=== PATIENT | female | born 1980 | race African-American/Black ===

== ENCOUNTER → 2017-02-17 | Outpatient (REF) | payer OTHER ==
[~2017-02-17] MED LIST: AMLO10TA2 PO; IBUP400T OR; PAIN325T OR; VICO5TAB OR
== END ==
LOC: M LAB REF 15:09
PROVIDERS: ATTEND Physician Assistant
DX: N76.0 Acute vaginitis (principal)

== ENCOUNTER 2017-03-21 09:08 | Day surgery (SDC) | payer OTHER ==
[~2017-03-21] VITALS: Ht 165.1 cm; Wt 91.2 kg
[~2017-03-21 09:08] MED LIST changes: +KETOROLAC 60 MG/2 ML VIAL (J1885) As Ordered ONE; +LIDOCAINE 2% INJ 100 MG/5 ML SDV (FOR ANES.) As Ordered ONE; +METOCLOPRAMIDE INJ 10MG/2ML VIAL (J2765) As Ordered ONE; +MIDAZOLAM INJ 2 MG/2 ML VIAL (J2250) As Ordered ONE; +ONDANSETRON 4MG/2ML VIAL (J2405) As Ordered ONE; +PROPOFOL 200 MG/20 ML VIAL As Ordered ONE; +ROCURONIUM BROMIDE 50 MG/5 ML VIAL/SYRINGE As Ordered ONE; +fentaNYL 250 MCG/5 ML INJECTION (J3010) As Ordered ONE
[2017-03-21] MEDS ORDERED: LR 1,000 ML IV ONE (09:15)
[2017-03-21 09:43] LABS: MEAN CORPUSCULAR HEMOGLOBIN 22.3 pg (27.0-33.0); MEAN CORPUSCULAR HGB CONC 29.7 g/dl (32.0-36.5); MEAN CORPUSCULAR VOLUME 75.3 fl (80.0-96.0); RED CELL DISTRIBUTION WIDTH 16.7 % (11.5-14.5); WHITE BLOOD COUNT 6.4 10^3/uL (4.0-10.0)
[2017-03-21] MEDS ORDERED: BUPIVACAINE HCL 0.25% 30 ML VIAL As Ordered ONE (10:46)
[2017-03-21] MEDS ORDERED: BUPIVACAINE HCL 0.5% 30 ML VIAL As Ordered ONE (11:12)
[2017-03-21] MEDS ORDERED: ONDANSETRON 4MG/2ML VIAL (J2405) As Ordered ONE (12:24)
[2017-03-21] MEDS: MEPERIDINE INJ 25 MG/ML VIAL (J2175) IV PRN ×2 (12:26→12:43)
[2017-03-21] MEDS ORDERED: METOCLOPRAMIDE INJ 10MG/2ML VIAL (J2765) IV PRN (12:30)
[2017-03-21] MEDS ORDERED: LR 1,000 ML IV SCH (12:30)
[2017-03-21] MEDS ORDERED: ONDANSETRON 4MG/2ML VIAL (J2405) IV PRN ×2 (12:30→12:45)
[2017-03-21] MEDS ORDERED: fentaNYL 100 MCG/2 ML INJECTION (J3010) IV PRN (12:30)
[2017-03-21] MEDS ORDERED: PERCOCET 5MG/325MG TAB PO PRN (12:30)
[2017-03-21] MEDS ORDERED: DOCUSATE SODIUM 100 MG CAP PO PRN (12:45)
[2017-03-21] MEDS ORDERED: NEOSTIGMINE 10 MG/10 ML VIAL (J2710) As Ordered ONE (13:10)
[2017-03-21] MEDS ORDERED: GLYCOPYRROLATE INJ 0.2 MG/ML 2 ML VIAL As Ordered ONE (13:10)
[2017-03-21] MEDS ORDERED: MORPHINE 2 MG/ML 1ML SYRINGE IV PRN (13:30)
[2017-03-21 15:00] VITALS: BP 179/114
[2017-03-21] MEDS ORDERED: IBUPROFEN 800 MG TAB PO PRN (15:00)
--- NOTE | 2017-03-21 15:33 | RO ---
DATE OF PROCEDURE: 03/21/2017 PREPROCEDURE DIAGNOSIS: Satisfied parity. POSTPROCEDURE DIAGNOSIS: Satisfied parity. OPERATIVE PROCEDURE: Laparoscopic bilateral salpingectomy. SURGEON: Noe Mendez MD CONVERTER OPERATOR: Ludmila Shin MD ANESTHESIA: Dr. Clayton, General. IV FLUIDS: 500 mL. URINE OUTPUT: 100 mL ESTIMATED BLOOD LOSS: 5 mL. COMPLICATIONS: None. SENT TO PATHOLOGY FOR ANALYSIS: Bilateral tubes. ANTIBIOTICS GIVEN PRIOR TO INCISION: None. INDICATION FOR SURGERY: The patient is a 36-year-old G3, P3 using condoms for contraception with strong desire for permanent sterilization via bilateral salpingectomy. I extensively counseled on several episodes in regard to risk/benefits/alternatives/indication and elects to proceed. DESCRIPTION OF PROCEDURE: The risks, benefits, alternatives, indications reviewed with the patient and informed consent was obtained. She was taken to the operating room where general anesthesia was obtained without difficulty. She was then placed in a low lithotomy position using gel pad and Caleb stirrups. An exam under anesthesia was performed and noted for approximately 8 to 10 week size uterus with no adnexal masses or fullness. After a time-out was performed, a sterile speculum was placed in the patient's vagina and cervix was visualized. A single-tooth tenaculum was used to grasp the anterior lip of the cervix. A 9 mm Hanks dilator was then placed intrauterine and then taped for assistance with uterine manipulation to the single tooth tenaculum. Also a Haas catheter was placed without incident in a routine fashion and attention was then turned to the abdomen where after gloves were exchanged, a 5 mm infraumbilical incision was made. A 5 mm trocar and sleeve were carefully introduced into the peritoneal cavity under direct visualization without incident. A pneumoperitoneum was established with entry pressure less than 5 mmHg. After this gas was turned up to a maximum pressure of 20 mmHg and a 360 degrees evaluation was performed to include normal entry site as well as normal appearing uterus, bilateral fallopian tubes and ovaries as well as normal appearing intestines and liver edge. Two additional 5 mm trocars, one on the left and one on the right lower aspect of the abdominal wall were placed under direct visualization using 0.25% Marcaine plain , approximately 3 to 4 mL total utilized. After again proper anatomy was visualized the left fallopian tube was grasped at its fimbriated end and the mesosalpinx was clamped, cut and ligated with the Harmonic scalpel. This was completed up to the cornual aspect which then the fallopian tube was then crossed by the Harmonic device, clamped and cauterized without incident. The left fallopian tube was then removed from the right trocar without incident. The exact same procedure was performed on the right fallopian tube without incident and was removed through the left trocar at this point without incident. Re-examination of the pelvis demonstrated excellent hemostasis. The 5 mm trocars were then removed under direct visualization after all gas was turned off and maximum amount of CO2 was removed from the abdomen. After all trocar sites were removed, the trocar incisions were closed with #4-0 Monocryl in a subcuticular fashion and dressed with Dermabond. All vaginal instruments were removed to include the single tooth tenaculum as well as the Hanks dilator. Manual sweep demonstrated no retained foreign objects in the vagina. At the completion of the case, sponge, lap and needle counts correct times three. The patient tolerated the procedure well and was taken to the post anesthesia care unit (PACU) in stable condition. Eugene Mendez OB-GALLERY OR MUSEUM GUIDE DEVIN
== END 2017-03-21 15:35 | disposition home or self-care (01) ==
LOC: M SDC 09:08
PROVIDERS: ATTEND Student in an Organized Health Care Education/Training Program
DX: Z30.2 Encounter for sterilization (principal); I10 Essential (primary) hypertension; L30.9 Dermatitis, unspecified; L40.9 Psoriasis, unspecified; G43.909 Migraine, unspecified, not intractable, without status migrainosus; J45.909 Unspecified asthma, uncomplicated; Z88.8 Allergy status to other drugs, medicaments and biological substances; Z79.899 Other long term (current) drug therapy
CPT/HCPCS: 36415; 58661; 84702; 85027; 86850; 86900; 86901; 88302; 96374; 96375; J1885; J2175; J2250; J2405; J2710; J2765; J3010

== ENCOUNTER 2018-08-07 19:35 | Emergency (ER) | payer OTHER, SELFPAY ==
[~2018-08-07] VITALS: Ht 165.1 cm; Wt 95.5 kg
[~2018-08-07 19:35] MED LIST changes: -AMLO10TA2 PO; +AMLO10TA5 PO; -KETOROLAC 60 MG/2 ML VIAL (J1885) As Ordered ONE; -LIDOCAINE 2% INJ 100 MG/5 ML SDV (FOR ANES.) As Ordered ONE; -METOCLOPRAMIDE INJ 10MG/2ML VIAL (J2765) As Ordered ONE; -MIDAZOLAM INJ 2 MG/2 ML VIAL (J2250) As Ordered ONE; -ONDANSETRON 4MG/2ML VIAL (J2405) As Ordered ONE; -PROPOFOL 200 MG/20 ML VIAL As Ordered ONE; -ROCURONIUM BROMIDE 50 MG/5 ML VIAL/SYRINGE As Ordered ONE; -fentaNYL 250 MCG/5 ML INJECTION (J3010) As Ordered ONE
[2018-08-07] MEDS ORDERED: ZYRTTAB8 PO (19:47)
[2018-08-07] MEDS ORDERED: MECLIZINE 25 MG TABLET PO ONE (21:30)
[2018-08-07 22:29] LABS: BASO % 0.3 % (0.0-1.0); EOS # 0.3 10^3/uL (0.0-0.50); EOS % 3.2 % (0.0-3.0); HEMATOCRIT 32.4 % (36.0-47.0); HEMOGLOBIN 9.3 g/dl (12.0-15.5); LYMPH # 2.7 10^3/uL (1.5-4.5); LYMPH % 34.4 % (24.0-44.0); MEAN CORPUSCULAR HEMOGLOBIN 20.5 pg (27.0-33.0); MEAN CORPUSCULAR HGB CONC 28.7 g/dl (32.0-36.5); MEAN CORPUSCULAR VOLUME 71.5 fl (80.0-96.0); MONO # 0.6 10^3/uL (0.0-0.8); MONO % 7.4 % (0.0-5.0); NEUTROPHILS # 4.3 10^3/uL (1.8-7.7); NEUTROPHILS % 54.6 % (36.0-66.0); PLATELET COUNT, AUTOMATED 340 10^3/uL (150-450); RED BLOOD COUNT 4.53 10^6/uL (4.00-5.40); WHITE BLOOD COUNT 7.8 10^3/uL (4.0-10.0)
[2018-08-07 22:48] LABS: HCG, SERUM QUALITATIVE NEGATIVE (NEGATIVE)
[2018-08-07 22:58] LABS: BLOOD UREA NITROGEN 11 MG/DL (7-18); CALCIUM LEVEL 8.6 MG/DL (8.5-10.1); CARBON DIOXIDE LEVEL 27 MEQ/L (21-32); CHLORIDE LEVEL 106 MEQ/L (98-107); CPK CREATINE PHOSPHOKINASE 224 U/L (26-192); FREE T4 0.88 NG/DL (0.76-1.46); GLOMERULAR FILTRATION RATE > 60.0 (>60); GLUCOSE, FASTING 90 MG/DL (70-100); MAGNESIUM LEVEL 1.9 MG/DL (1.8-2.4); MB/CK RELATIVE INDEX 0.45 (< OR =4); POTASSIUM SERUM 3.8 MEQ/L (3.5-5.1); SODIUM LEVEL 140 MEQ/L (136-145); THYROID STIMULATING HORMONE 0.687 uIU/ML (0.358-3.740); TROPONIN I < 0.02 NG/ML (< 0.10)
[2018-08-07 23:17] VITALS: BP 136/88
[2018-08-07] MEDS ORDERED: MECL-68 PO (23:19)
--- NOTE | 2018-08-08 08:16 | ECGEPIP ---
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
== END 2018-08-07 23:25 | disposition home or self-care (01) ==
LOC: M ED 19:35
DX: I10 Essential (primary) hypertension (principal); D64.9 Anemia, unspecified; H81.10 Benign paroxysmal vertigo, unspecified ear; J32.9 Chronic sinusitis, unspecified; J45.909 Unspecified asthma, uncomplicated; Z79.899 Other long term (current) drug therapy; Z88.8 Allergy status to other drugs, medicaments and biological substances

== ENCOUNTER 2020-04-27 16:07 | Outpatient (CLI) | payer OTHER ==
[~2020-04-27] VITALS: Ht 165.1 cm; Wt 95.4 kg
[~2020-04-27 16:07] MED LIST changes: -AMLO10TA5 PO; +AMLO1TAB25 PO; +IRON SUCROSE 200 MG in NS 100 ML OVER 1 HR IV ONE; +MECL1TAB31 PO; +ZYRTTAB8 PO
[2020-04-27] MEDS ORDERED: ACETAMINOPHEN 500 MG TAB PO ONE (16:45)
[2020-04-27 16:47] VITALS: BP 138/90
[2020-04-27 17:00] VITALS: BP 134/88
[2020-04-27 18:00] VITALS: BP 140/93
== END 2020-04-27 17:58 | disposition home or self-care (01) ==
LOC: M INFU 16:07
PROVIDERS: ATTEND Student in an Organized Health Care Education/Training Program
DX: D50.9 Iron deficiency anemia, unspecified (principal); Z88.8 Allergy status to other drugs, medicaments and biological substances
CPT/HCPCS: 96365; J1756

== ENCOUNTER 2020-05-04 16:01 | Outpatient (CLI) | payer OTHER ==
[~2020-05-04 16:01] MED LIST changes: +ACETAMINOPHEN 500 MG TAB PO ONE
[2020-05-04 16:20] VITALS: BP 159/98
[2020-05-04 17:25] VITALS: BP 138/88
== END 2020-05-04 17:25 | disposition home or self-care (01) ==
LOC: M INFU 16:01
PROVIDERS: ATTEND Student in an Organized Health Care Education/Training Program
DX: D50.9 Iron deficiency anemia, unspecified (principal); Z88.8 Allergy status to other drugs, medicaments and biological substances
CPT/HCPCS: 96365; J1756

== ENCOUNTER 2020-05-11 16:27 | Outpatient (CLI) | payer OTHER ==
[~2020-05-11] VITALS: Ht 165.1 cm; Wt 95.4 kg
[2020-05-11 16:49] VITALS: BP 136/90
[2020-05-11 17:30] VITALS: BP 153/92
== END 2020-05-11 17:30 | disposition home or self-care (01) ==
LOC: M INFU 16:27
PROVIDERS: ATTEND Student in an Organized Health Care Education/Training Program
DX: D50.9 Iron deficiency anemia, unspecified (principal); Z88.8 Allergy status to other drugs, medicaments and biological substances
CPT/HCPCS: 96365; J1756

== ENCOUNTER 2020-05-18 16:06 | Outpatient (CLI) | payer OTHER ==
[~2020-05-18] VITALS: Ht 165.1 cm; Wt 95.4 kg
[2020-05-18 16:10] VITALS: BP 154/101
[2020-05-18 17:22] VITALS: BP 150/85
== END 2020-05-18 17:25 | disposition home or self-care (01) ==
LOC: M INFU 16:06
PROVIDERS: ATTEND Student in an Organized Health Care Education/Training Program
DX: D50.9 Iron deficiency anemia, unspecified (principal); Z88.8 Allergy status to other drugs, medicaments and biological substances

== ENCOUNTER 2020-05-25 16:09 | Outpatient (CLI) | payer OTHER ==
[~2020-05-25] VITALS: Ht 165.1 cm; Wt 95.4 kg
[2020-05-25 16:20] VITALS: BP 151/93
[2020-05-25 17:50] VITALS: BP 149/90
== END 2020-05-25 17:46 | disposition home or self-care (01) ==
LOC: M INFU 16:09
PROVIDERS: ATTEND Student in an Organized Health Care Education/Training Program
DX: D50.9 Iron deficiency anemia, unspecified (principal); Z88.8 Allergy status to other drugs, medicaments and biological substances
CPT/HCPCS: 96365; J1756

== ENCOUNTER → 2021-05-30 | Outpatient (CLI) | payer OTHER ==
[~2021-05-30] VITALS: Ht 165.1 cm; Wt 95.4 kg
[2021-05-30 17:28] VITALS: BP 157/99
== END ==
LOC: M INFU 15:59
PROVIDERS: ATTEND Student in an Organized Health Care Education/Training Program
DX: D50.8 Other iron deficiency anemias (principal); Z88.8 Allergy status to other drugs, medicaments and biological substances
CPT/HCPCS: 96365; J1756

== ENCOUNTER 2021-06-06 16:27 | Outpatient (CLI) | payer OTHER ==
[~2021-06-06] VITALS: Ht 165.1 cm; Wt 95.4 kg
[~2021-06-06 16:27] MED LIST changes: -ACETAMINOPHEN 500 MG TAB PO ONE; -IRON SUCROSE 200 MG in NS 100 ML OVER 1 HR IV ONE
[2021-06-06 16:30] VITALS: BP 144/91
[2021-06-06] MEDS ORDERED: ACETAMINOPHEN 500 MG TAB PO ONE (16:30)
[2021-06-06] MEDS ORDERED: IRON SUCROSE 200 MG in NS 100 ML OVER 1 HR IV ONE (16:30)
[2021-06-06 18:07] VITALS: BP 162/96
== END 2021-06-06 18:10 | disposition home or self-care (01) ==
LOC: M INFU 16:27
PROVIDERS: ATTEND Student in an Organized Health Care Education/Training Program
DX: D50.8 Other iron deficiency anemias (principal); Z88.1 Allergy status to other antibiotic agents; Z88.8 Allergy status to other drugs, medicaments and biological substances
CPT/HCPCS: 96365; J1756

== ENCOUNTER 2021-06-20 16:12 | Outpatient (CLI) | payer OTHER ==
[~2021-06-20] VITALS: Ht 165.1 cm; Wt 95.4 kg
[~2021-06-20 16:12] MED LIST changes: +IRON SUCROSE 200 MG in NS 100 ML OVER 1 HR IV ONE
[2021-06-20] MEDS ORDERED: ACETAMINOPHEN 500 MG TAB PO ONE (16:35)
[2021-06-20 17:52] VITALS: BP 143/90
== END 2021-06-20 17:53 | disposition home or self-care (01) ==
LOC: M INFU 16:12
PROVIDERS: ATTEND Student in an Organized Health Care Education/Training Program
DX: D50.8 Other iron deficiency anemias (principal); Z88.8 Allergy status to other drugs, medicaments and biological substances
CPT/HCPCS: 96365; J1756

== ENCOUNTER 2021-07-04 10:50 | Outpatient (CLI) | payer OTHER ==
[~2021-07-04] VITALS: Ht 165.1 cm; Wt 95.4 kg
[~2021-07-04 10:50] MED LIST changes: +ACETAMINOPHEN 500 MG TAB PO ONE
[2021-07-04 11:02] VITALS: BP 145/91
[2021-07-04 12:40] VITALS: BP 142/90
== END 2021-07-04 12:40 ==
LOC: M INFU 10:50
PROVIDERS: ATTEND Student in an Organized Health Care Education/Training Program
DX: D50.8 Other iron deficiency anemias (principal)
CPT/HCPCS: 96365; J1756

== ENCOUNTER 2021-07-11 16:02 | Outpatient (CLI) | payer OTHER ==
[~2021-07-11] VITALS: Ht 162.6 cm; Wt 95.4 kg
[2021-07-11 16:10] VITALS: BP 142/88
[2021-07-11 17:41] VITALS: BP 160/90
== END 2021-07-11 17:43 | disposition home or self-care (01) ==
LOC: M INFU 16:02
PROVIDERS: ATTEND Student in an Organized Health Care Education/Training Program
DX: D50.8 Other iron deficiency anemias (principal); Z88.1 Allergy status to other antibiotic agents; Z88.8 Allergy status to other drugs, medicaments and biological substances

== ENCOUNTER → 2021-12-30 | Outpatient (CLI) | payer OTHER ==
[~2021-12-30] MED LIST changes: -ACETAMINOPHEN 500 MG TAB PO ONE; -IRON SUCROSE 200 MG in NS 100 ML OVER 1 HR IV ONE
== END ==
LOC: M WUC 10:27
PROVIDERS: ATTEND Physician Assistant
DX: S60.022A Contusion of left index finger without damage to nail, initial encounter (principal)

== ENCOUNTER 2022-04-12 16:57 | Emergency (ER) | payer OTHER ==
[~2022-04-12] VITALS: Ht 165.1 cm; Wt 103.0 kg
[2022-04-12 18:10] LABS: BASO % 0.1 % (0.0-1.0); EOS # 0.3 10^3/uL (0.0-0.5); EOS % 3.2 % (0.0-3.0); HEMOGLOBIN 11.4 g/dl (12.0-15.5); LYMPH # 2.1 10^3/uL (1.5-5.0); LYMPH % 26.8 % (24.0-44.0); MEAN CORPUSCULAR HEMOGLOBIN 26.2 pg (27.0-33.0); MEAN CORPUSCULAR HGB CONC 30.8 g/dl (32.0-36.5); MEAN CORPUSCULAR VOLUME 85.1 fl (80.0-96.0); MONO # 0.6 10^3/uL (0.0-0.8); MONO % 7.4 % (2.0-8.0); NEUTROPHILS # 4.9 10^3/uL (1.5-8.5); NEUTROPHILS % 62.2 % (36.0-66.0); PLATELET COUNT, AUTOMATED 219 10^3/uL (150-450); RED BLOOD COUNT 4.35 10^6/uL (4.00-5.40); WHITE BLOOD COUNT 7.9 10^3/uL (4.0-10.0)
[2022-04-12] MEDS ORDERED: COMBIVENT RESPIMAT 100-20MCG INHALER 4GM INH ONE (18:15)
[2022-04-12] MEDS ORDERED: methylPREDNISolone 125MG 2ML VIAL IV ONE (18:15)
[2022-04-12 18:26] LABS: INR 0.91; PROTHROMBIN TIME 12.5 SECONDS (12.5-14.5)
[2022-04-12 18:27] LABS: PARTIAL THROMBOPLASTIN TIME 28.4 SECONDS (24.8-34.2)
[2022-04-12 18:34] LABS: D-DIMER QUANT < 270 ng/ml (<500)
[2022-04-12 19:06] LABS: BLOOD UREA NITROGEN 12 MG/DL (7-18); CALCIUM LEVEL 9.1 MG/DL (8.5-10.1); CARBON DIOXIDE LEVEL 27 MEQ/L (21-32); CHLORIDE LEVEL 105 MEQ/L (98-107); CK-MB VALUE MASS 1.3 NG/ML (<3.6); CREATININE FOR GFR 0.86 MG/DL (0.55-1.30); GLOMERULAR FILTRATION RATE > 60.0 (>58); GLUCOSE, FASTING 95 MG/DL (70-100); MAGNESIUM LEVEL 2.1 MG/DL (1.8-2.4); MB/CK RELATIVE INDEX 0.96 (< OR =4); NT-PRO BNP 24 PG/ML (<125); POTASSIUM SERUM 3.7 MEQ/L (3.5-5.1); SODIUM LEVEL 136 MEQ/L (136-145)
[2022-04-12 19:16] LABS: CK-MB VALUE MASS 1.5 NG/ML (<3.6); MB/CK RELATIVE INDEX 1.13 (< OR =4)
[2022-04-12 19:30] VITALS: BP 151/92
[2022-04-12] MEDS ORDERED: holter (19:31)
[2022-04-12] MEDS ORDERED: PRED20TA PO ×2 (19:40→19:41)
== END 2022-04-12 20:06 | disposition home or self-care (01) ==
LOC: M ED 16:57
DX: J45.909 Unspecified asthma, uncomplicated (principal); R00.2 Palpitations; I10 Essential (primary) hypertension; R51.9 Headache, unspecified; Z79.899 Other long term (current) drug therapy; Z88.8 Allergy status to other drugs, medicaments and biological substances
CPT/HCPCS: 71045; 80048; 82550; 82553; 83735; 83880; 84484; 85025; 85379; 85610; 85730; 87486; 87581; 87633; 87798; 93005; 94640; 96374; 99284; J2930

== ENCOUNTER → 2022-04-13 | Outpatient (CLI) | payer OTHER ==
[~2022-04-13] MED LIST changes: +PRED20TA PO; +holter
== END ==
LOC: M EKG 13:09
PROVIDERS: ATTEND Internal Medicine
DX: R00.2 Palpitations (principal)

== ENCOUNTER 2022-10-01 16:13 | Emergency (ER) | payer OTHER ==
[~2022-10-01] VITALS: Ht 165.1 cm; Wt 99.4 kg
[2022-10-01] MEDS ORDERED: BISO1TAB18 PO (16:34)
[2022-10-01] MEDS ORDERED: BISO5TAB14 PO (17:21)
[2022-10-01 17:39] LABS: HEMOGLOBIN 11.1 g/dl (12.0-15.5); MEAN CORPUSCULAR HEMOGLOBIN 25.3 pg (27.0-33.0); MEAN CORPUSCULAR HGB CONC 30.8 g/dl (32.0-36.5); MEAN CORPUSCULAR VOLUME 82.2 fl (80.0-96.0); PLATELET COUNT, AUTOMATED 296 10^3/uL (150-450); RED BLOOD COUNT 4.38 10^6/uL (4.00-5.40); WHITE BLOOD COUNT 7.5 10^3/uL (4.0-10.0)
[2022-10-01 18:12] LABS: ALBUMIN 3.8 G/DL (3.2-5.2); ALKALINE PHOSPHATASE 32 U/L (46-116); ALT/SGPT 21 U/L (7.0-40); AST/SGOT 34 U/L (<34); BILIRUBIN,DIRECT < 0.1 MG/DL (<0.4); BILIRUBIN,TOTAL 0.4 MG/DL (0.3-1.2); BLOOD UREA NITROGEN 13 MG/DL (9-23); CARBON DIOXIDE LEVEL 27 MMOL/L (20-31); CHLORIDE LEVEL 106 MMOL/L (98-107); CREATININE FOR GFR 0.83 MG/DL (0.55-1.30); GLOMERULAR FILTRATION RATE > 60.0 (>58); GLUCOSE, FASTING 83 MG/DL (60-100); MAGNESIUM LEVEL 2.1 MG/DL (1.8-2.4); POTASSIUM SERUM 4.6 MMOL/L (3.5-5.1); SODIUM LEVEL 140 MMOL/L (136-145); TOTAL PROTEIN 7.2 G/DL (5.7-8.2)
[2022-10-01] MEDS ORDERED: KETOROLAC 30 MG/ML 1ML VIAL IV ONE (18:15)
[2022-10-01] MEDS ORDERED: amLODIPine 5 MG TAB PO ONE (18:20)
[2022-10-01] MEDS ORDERED: CHLORTHALIDONE 12.5MG PER 1/2 TABLET PO ONE (18:20)
[2022-10-01 18:32] VITALS: BP 169/91
[2022-10-01] MEDS ORDERED: AMLO1TAB24 PO (19:00)
[2022-10-01 19:13] VITALS: BP 172/98
== END 2022-10-01 19:20 | disposition home or self-care (01) ==
LOC: M ED 16:13
DX: I10 Essential (primary) hypertension (principal); G44.201 Tension-type headache, unspecified, intractable; Z88.8 Allergy status to other drugs, medicaments and biological substances
CPT/HCPCS: 36415; 80048; 80076; 83735; 85027; 93005; 96374; 99284; J1885

== ENCOUNTER → 2022-10-23 | Outpatient (CLI) | payer OTHER ==
[~2022-10-23] MED LIST changes: +AMLO1TAB24 PO; +BISO1TAB18 PO; +BISO5TAB14 PO
[2022-10-23 12:22] LABS: CREATININE, URINE 177.8 MG/DL
[2022-10-23 12:23] LABS: MAU/CREAT RATIO 11.2 MCG/MG (0.0-30.0)
[2022-10-23 12:26] LABS: BLOOD UREA NITROGEN 13 MG/DL (9-23); CALCIUM LEVEL 9.3 MG/DL (8.5-10.1); CARBON DIOXIDE LEVEL 30 MMOL/L (20-31); CHLORIDE LEVEL 106 MMOL/L (98-107); CREATININE FOR GFR 0.88 MG/DL (0.55-1.30); GLOMERULAR FILTRATION RATE > 60.0 (>58); GLUCOSE, FASTING 84 MG/DL (60-100); POTASSIUM SERUM 4.3 MMOL/L (3.5-5.1); SODIUM LEVEL 137 MMOL/L (136-145)
== END ==
LOC: M LAB 10:33
PROVIDERS: ATTEND Internal Medicine Cardiovascular Disease
DX: I10 Essential (primary) hypertension (principal)

== ENCOUNTER → 2022-11-21 | Outpatient (CLI) | payer OTHER | LOC: M SLEEP HO 12:48 | PROVIDERS: ATTEND Internal Medicine Cardiovascular Disease | DX: R06.83 Snoring (principal) ==

== ENCOUNTER → 2023-01-12 | Outpatient (CLI) | payer OTHER ==
[~2023-01-12] MED LIST changes: +CHLO125TA PO; +CIPR-249 PO; +METR-265 PO; +OXYC1TAB23 PO; +POTA10CA60 PO
== END ==
LOC: M WHC 13:10
PROVIDERS: ATTEND Nurse Practitioner Primary Care
DX: Z12.31 Encounter for screening mammogram for malignant neoplasm of breast (principal)

== ENCOUNTER 2023-04-26 15:23 | Outpatient (CLI) | payer OTHER ==
[~2023-04-26] VITALS: Ht 160 cm; Wt 96.0 kg
[~2023-04-26 15:23] MED LIST changes: +ACETAMINOPHEN TAB 650MG DOSE (2X325MG) PO ONE; +ALBUTEROL SULFATE 2.5MG/0.5ML INH NEB SOLN INH PRN; +EPINEPHrine INJ 1 MG/ML 1ML AMP IM PRN; +IRON SUCROSE 200 MG in NS 190 ML IV ONE; +MECL-209 PO; -MECL1TAB31 PO; +NS 1,000 ML IV SCH; +diphenhydrAMINE 50MG/ML VIAL IV PRN; +methylPREDNISolone 125MG 2ML VIAL IV PRN
[2023-04-26 17:28] VITALS: BP 142/86; O2SAT 100
== END 2023-04-26 17:30 ==
LOC: M INFU 15:23
PROVIDERS: ATTEND Student in an Organized Health Care Education/Training Program
DX: D50.9 Iron deficiency anemia, unspecified (principal); Z88.8 Allergy status to other drugs, medicaments and biological substances
CPT/HCPCS: 96365; J1756

== ENCOUNTER 2023-05-03 16:26 | Outpatient (CLI) | payer OTHER ==
[~2023-05-03] VITALS: Ht 165.1 cm; Wt 95.0 kg
[~2023-05-03 16:26] MED LIST changes: -ACETAMINOPHEN TAB 650MG DOSE (2X325MG) PO ONE; -IRON SUCROSE 200 MG in NS 190 ML IV ONE; -NS 1,000 ML IV SCH
[2023-05-03] MEDS ORDERED: NS 1,000 ML IV SCH (16:30)
[2023-05-03] MEDS ORDERED: IRON SUCROSE 200 MG in NS 190 ML IV ONE (16:30)
[2023-05-03] MEDS ORDERED: ACETAMINOPHEN TAB 650MG DOSE (2X325MG) PO ONE (16:30)
[2023-05-03 16:36] VITALS: BP 138/71; O2SAT 97
[2023-05-03 18:03] VITALS: BP 158/81; O2SAT 98
== END 2023-05-03 18:03 | disposition home or self-care (01) ==
LOC: M INFU 16:26
PROVIDERS: ATTEND Student in an Organized Health Care Education/Training Program
DX: D50.9 Iron deficiency anemia, unspecified (principal); Z88.8 Allergy status to other drugs, medicaments and biological substances; Z88.1 Allergy status to other antibiotic agents
CPT/HCPCS: 96365; J1756

== ENCOUNTER 2023-05-08 16:15 | Outpatient (CLI) | payer OTHER ==
[~2023-05-08] VITALS: Ht 172.7 cm; Wt 96.5 kg
[~2023-05-08 16:15] MED LIST changes: +ACETAMINOPHEN TAB 650MG DOSE (2X325MG) PO ONE; +IRON SUCROSE 200 MG in NS 190 ML IV ONE; +NS 1,000 ML IV SCH
[2023-05-08 16:44] VITALS: BP 131/65; O2SAT 97
[2023-05-08 17:35] VITALS: BP 129/82; O2SAT 100
== END 2023-05-08 17:35 ==
LOC: M INFU 16:15
PROVIDERS: ATTEND Student in an Organized Health Care Education/Training Program
DX: D50.9 Iron deficiency anemia, unspecified (principal); Z88.8 Allergy status to other drugs, medicaments and biological substances
CPT/HCPCS: 96365; J1756

== ENCOUNTER 2023-05-15 16:10 | Outpatient (CLI) | payer OTHER ==
[~2023-05-15] VITALS: Ht 165.1 cm; Wt 95.0 kg
[~2023-05-15 16:10] MED LIST changes: -ACETAMINOPHEN TAB 650MG DOSE (2X325MG) PO ONE; -IRON SUCROSE 200 MG in NS 190 ML IV ONE; -NS 1,000 ML IV SCH
[2023-05-15 16:16] VITALS: BP 146/84; O2SAT 100
[2023-05-15] MEDS ORDERED: ACETAMINOPHEN TAB 650MG DOSE (2X325MG) PO ONE (16:25)
[2023-05-15] MEDS ORDERED: NS 1,000 ML IV SCH (16:25)
[2023-05-15] MEDS ORDERED: IRON SUCROSE 200 MG in NS 190 ML IV ONE (16:30)
[2023-05-15 17:49] VITALS: BP 141/83; O2SAT 100
== END 2023-05-15 17:57 ==
LOC: M INFU 16:10
PROVIDERS: ATTEND Student in an Organized Health Care Education/Training Program
DX: D50.9 Iron deficiency anemia, unspecified (principal); Z88.8 Allergy status to other drugs, medicaments and biological substances
CPT/HCPCS: 96365; J1756

== ENCOUNTER 2023-05-25 16:10 | Outpatient (CLI) | payer OTHER ==
[~2023-05-25] VITALS: Ht 172.7 cm; Wt 97.0 kg
[~2023-05-25 16:10] MED LIST changes: +ACETAMINOPHEN TAB 650MG DOSE (2X325MG) PO ONE; +IRON SUCROSE 200 MG in NS 190 ML IV ONE; +NS 1,000 ML IV SCH
[2023-05-25 16:29] VITALS: BP 130/89; O2SAT 100
[2023-05-25 18:00] VITALS: BP 134/80; O2SAT 99
== END 2023-05-25 18:00 | disposition home or self-care (01) ==
LOC: M INFU 16:10
PROVIDERS: ATTEND Student in an Organized Health Care Education/Training Program
DX: D50.9 Iron deficiency anemia, unspecified (principal); Z88.8 Allergy status to other drugs, medicaments and biological substances
CPT/HCPCS: 96365; J1756

== ENCOUNTER → 2023-06-08 | Outpatient (CLI) | payer OTHER ==
[~2023-06-08] MED LIST changes: -ACETAMINOPHEN TAB 650MG DOSE (2X325MG) PO ONE; -ALBUTEROL SULFATE 2.5MG/0.5ML INH NEB SOLN INH PRN; -EPINEPHrine INJ 1 MG/ML 1ML AMP IM PRN; -IRON SUCROSE 200 MG in NS 190 ML IV ONE; -NS 1,000 ML IV SCH; -diphenhydrAMINE 50MG/ML VIAL IV PRN; -methylPREDNISolone 125MG 2ML VIAL IV PRN
[2023-06-08 12:54] LABS: BASO % 0.1 % (0.0-1.0); EOS # 0.1 10^3/uL (0.0-0.5); EOS % 1.1 % (0.0-3.0); HEMATOCRIT 39.7 % (36.0-47.0); LYMPH # 1.6 10^3/uL (1.5-5.0); MEAN CORPUSCULAR HGB CONC 30.2 g/dl (32.0-36.5); MEAN CORPUSCULAR VOLUME 82.7 fl (80.0-96.0); MONO # 0.6 10^3/uL (0.0-0.8); MONO % 7.1 % (2.0-8.0); NEUTROPHILS # 6.6 10^3/uL (1.5-8.5); NEUTROPHILS % 73.5 % (36.0-66.0); PLATELET COUNT, AUTOMATED 305 10^3/uL (150-450)
[2023-06-08 12:58] LABS: ERYTHROCYTE SEDIMENTATION RATE 32 mm/hr (0-20)
[2023-06-08 13:28] LABS: C REACTIVE PROTEIN QUANTITATIV < 0.40 MG/DL (<1.0)
[2023-06-08 13:29] LABS: IRON (FE) 95 UG/DL (50-170); PERCENT SATURATION 31.6 % (13.2-45.0); TOTAL IRON BINDING CAPACITY 301 UG/DL (250-425)
[2023-06-08 13:32] LABS: VITAMIN B12 LEVEL 581 PG/ML (211-911)
[2023-06-08 13:43] LABS: FOLATE > 24.0 NG/ML (>5.4)
== END ==
LOC: M LAB 12:37
PROVIDERS: ATTEND Internal Medicine Gastroenterology
DX: K57.32 Diverticulitis of large intestine without perforation or abscess without bleeding (principal); D64.9 Anemia, unspecified

== ENCOUNTER 2023-07-30 09:51 | Day surgery (SDC) | payer OTHER ==
[~2023-07-30] VITALS: Ht 165.1 cm; Wt 99.2 kg
[~2023-07-30 09:51] MED LIST changes: +D 50CAP2; +HAIR1CHW PO; +MAGN400C PO; +METH-1164 PO; +OMEP-173 PO
[2023-07-30] MEDS: NS 1,000 ML IV ONE (10:03)
[2023-07-30] MEDS ORDERED: fentaNYL 100 MCG/2 ML INJECTION As Ordered ONE (10:38)
[2023-07-30] MEDS ORDERED: LIDOCAINE 2% 100MG/5ML SDV (FOR ANES.) As Ordered ONE (11:07)
[2023-07-30] MEDS ORDERED: propofoL 200 MG/20 ML VIAL As Ordered ONE (11:07)
[2023-07-30] MEDS ORDERED: hydrALAZINE 20MG/ML 1ML VIAL As Ordered ONE (11:33)
[2023-07-30 12:23] VITALS: BP 123/73; TEMP 97.3; O2SAT 100
== END 2023-07-30 12:26 | disposition home or self-care (01) ==
LOC: M OPP 09:51
PROVIDERS: ATTEND Internal Medicine Gastroenterology
DX: K57.30 Diverticulosis of large intestine without perforation or abscess without bleeding (principal); K64.4 Residual hemorrhoidal skin tags; K64.8 Other hemorrhoids; K57.32 Diverticulitis of large intestine without perforation or abscess without bleeding; Z09 Encounter for follow-up examination after completed treatment for conditions other than malignant neoplasm; D50.9 Iron deficiency anemia, unspecified; K44.9 Diaphragmatic hernia without obstruction or gangrene; K29.70 Gastritis, unspecified, without bleeding; K31.89 Other diseases of stomach and duodenum; Z79.891 Long term (current) use of opiate analgesic; Z79.899 Other long term (current) drug therapy; Z88.8 Allergy status to other drugs, medicaments and biological substances
CPT/HCPCS: 43239; 45378; 88305; J0360; J3010

== ENCOUNTER → 2024-01-16 | Outpatient (CLI) | payer OTHER ==
[~2024-01-16] MED LIST changes: +ISOVUE-300 61% 100ML VIAL As Ordered ONE; +LIDOCAINE 1% MDV 20ML VIAL As Ordered ONE; -POTA10CA60 PO; +POTA10CA70 PO; +TRIAMCINOLONE ACETONIDE SUSP 40MG/ML 1ML VIAL As Ordered ONE
== END ==
LOC: M RAD 14:02
PROVIDERS: ATTEND Physician Assistant Surgical
DX: S73.121A Ischiocapsular ligament sprain of right hip, initial encounter (principal); X58.XXXA Exposure to other specified factors, initial encounter; Y92.9 Unspecified place or not applicable
CPT/HCPCS: 20610; 77002; J3301; Q9967

== ENCOUNTER → 2024-03-03 | Outpatient (CLI) | payer OTHER | LOC: M RAD 12:35 | PROVIDERS: ATTEND Physician Assistant Surgical | DX: S73.122A Ischiocapsular ligament sprain of left hip, initial encounter (principal); X58.XXXA Exposure to other specified factors, initial encounter; Y92.9 Unspecified place or not applicable | CPT/HCPCS: 20610; 77002; J3301; Q9967 ==

== ENCOUNTER 2024-03-24 15:56 | Outpatient (CLI) | payer OTHER ==
[~2024-03-24] VITALS: Ht 165.1 cm; Wt 97.7 kg
[~2024-03-24 15:56] MED LIST changes: +ALBUTEROL SULFATE 2.5MG/0.5ML INH NEB SOLN INH PRN; +EPINEPHrine INJ 1 MG/ML 1ML AMP IM PRN; -ISOVUE-300 61% 100ML VIAL As Ordered ONE; -LIDOCAINE 1% MDV 20ML VIAL As Ordered ONE; -TRIAMCINOLONE ACETONIDE SUSP 40MG/ML 1ML VIAL As Ordered ONE; +diphenhydrAMINE 50MG/ML VIAL IV PRN; +methylPREDNISolone 125MG 2ML VIAL IV PRN
[2024-03-24 16:05] VITALS: BP 162/80; O2SAT 98
[2024-03-24] MEDS: ACETAMINOPHEN TAB 650MG DOSE (2X325MG) PO ONE (16:19)
[2024-03-24] MEDS: IRON SUCROSE 200 MG in NS 190 ML IV ONE (17:04)
[2024-03-24 18:05] VITALS: BP 132/82; O2SAT 99
== END 2024-03-24 18:15 | disposition home or self-care (01) ==
LOC: M INFU 15:56
PROVIDERS: ATTEND Nurse Practitioner Family
DX: D50.9 Iron deficiency anemia, unspecified (principal); Z88.8 Allergy status to other drugs, medicaments and biological substances
CPT/HCPCS: 96365; J1756

== ENCOUNTER 2024-04-08 15:50 | Outpatient (CLI) | payer OTHER ==
[~2024-04-08] VITALS: Ht 165.1 cm; Wt 97.0 kg
[2024-04-08 15:50] VITALS: BP 137/79; O2SAT 100
[~2024-04-08 15:50] MED LIST changes: +NS 1,000 ML IV SCH
[2024-04-08] MEDS: ACETAMINOPHEN 325 MG TAB PO ONE (16:15)
[2024-04-08] MEDS: IRON SUCROSE 200 MG in NS 190 ML IV ONE (16:35)
[2024-04-08 17:40] VITALS: BP 125/77; O2SAT 100
== END 2024-04-08 17:50 ==
LOC: M INFU 15:50
PROVIDERS: ATTEND Nurse Practitioner Family
DX: D50.9 Iron deficiency anemia, unspecified (principal); Z88.8 Allergy status to other drugs, medicaments and biological substances
CPT/HCPCS: 96365; J1756

== ENCOUNTER 2024-04-16 16:00 | Outpatient (CLI) | payer OTHER ==
[~2024-04-16] VITALS: Ht 165.1 cm; Wt 97.7 kg
[2024-04-16 16:11] VITALS: BP 131/82; O2SAT 98
[2024-04-16] MEDS: ACETAMINOPHEN 325 MG TAB PO ONE (16:12)
[2024-04-16] MEDS: IRON SUCROSE 200 MG in NS 190 ML IV ONE (16:31)
[2024-04-16 17:52] VITALS: BP 123/72; O2SAT 99
== END 2024-04-16 18:00 ==
LOC: M INFU 16:00
PROVIDERS: ATTEND Nurse Practitioner Family
DX: D50.9 Iron deficiency anemia, unspecified (principal); Z88.8 Allergy status to other drugs, medicaments and biological substances
CPT/HCPCS: 96365; J1756

== ENCOUNTER 2024-04-23 16:20 | Outpatient (CLI) | payer OTHER ==
[~2024-04-23] VITALS: Ht 165.1 cm; Wt 97.7 kg
[2024-04-23 16:20] VITALS: BP 146/93; O2SAT 97
[~2024-04-23 16:20] MED LIST changes: +ACETAMINOPHEN 325 MG PO ONE
[2024-04-23] MEDS: ACETAMINOPHEN 325 MG TAB PO ONE (16:22)
[2024-04-23] MEDS: IRON SUCROSE 200 MG in NS 190 ML IV ONE (16:44)
[2024-04-23 17:41] VITALS: BP 128/78; O2SAT 99
== END 2024-04-23 17:55 ==
LOC: M INFU 16:20
PROVIDERS: ATTEND Nurse Practitioner Family
DX: D50.9 Iron deficiency anemia, unspecified (principal); Z88.8 Allergy status to other drugs, medicaments and biological substances
CPT/HCPCS: 96365; J1756

== ENCOUNTER 2024-05-01 16:20 | Outpatient (CLI) | payer OTHER ==
[2024-05-01 16:15] VITALS: BP 159/88; O2SAT 100
[~2024-05-01 16:20] MED LIST changes: -ACETAMINOPHEN 325 MG PO ONE; +ACETAMINOPHEN 325 MG TAB PO ONE
[2024-05-01] MEDS: ACETAMINOPHEN 325 MG TAB PO ONE (16:33)
[2024-05-01] MEDS: IRON SUCROSE 200 MG in NS 190 ML IV ONE (16:44)
[2024-05-01 17:51] VITALS: BP 138/60; O2SAT 100
== END 2024-05-01 18:00 ==
LOC: M INFU 16:20
PROVIDERS: ATTEND Nurse Practitioner Family
DX: D50.9 Iron deficiency anemia, unspecified (principal); Z88.8 Allergy status to other drugs, medicaments and biological substances
CPT/HCPCS: 96365; J1756

== ENCOUNTER 2025-03-30 12:48 | Outpatient (CLI) | payer OTHER ==
[~2025-03-30] VITALS: Ht 165.1 cm; Wt 97.7 kg
[~2025-03-30 12:48] MED LIST changes: +ALBUTEROL SULFATE 2.5 MG/0.5 ML INH CONCENTRATE NEB SOLN INH PRN; +EPINEPHrine INJ 1 MG/ML 1ML AMP IM PRN; +diphenhydrAMINE 50 MG/ML VIAL IV PRN
[2025-03-30 13:30] VITALS: BP 124/86; O2SAT 99
[2025-03-30] MEDS: FERRIC CARBOXYMALTOSE 750 MG (VIAL MATE) IN 100ML NS IV ONE (13:36)
[2025-03-30 14:05] VITALS: BP 139/82; O2SAT 100
== END 2025-03-30 14:05 | disposition home or self-care (01) ==
LOC: M INFU 12:48
PROVIDERS: ATTEND Internal Medicine
DX: D50.9 Iron deficiency anemia, unspecified (principal); Z88.8 Allergy status to other drugs, medicaments and biological substances
CPT/HCPCS: 96365; J1439

== ENCOUNTER → 2025-03-30 | Outpatient (CLI) | payer OTHER ==
[~2025-03-30] MED LIST changes: -ACETAMINOPHEN 325 MG TAB PO ONE; -ALBUTEROL SULFATE 2.5MG/0.5ML INH NEB SOLN INH PRN; +CETI-24 PO; -EPINEPHrine INJ 1 MG/ML 1ML AMP IM PRN; +HAIR1CHW2 PO; +MIRA3350 PO; -NS 1,000 ML IV SCH; +VITA100093 PO; -diphenhydrAMINE 50MG/ML VIAL IV PRN; -methylPREDNISolone 125MG 2ML VIAL IV PRN
== END ==
LOC: M WHC 16:31
PROVIDERS: ATTEND General Practice
DX: Z12.31 Encounter for screening mammogram for malignant neoplasm of breast (principal)

== ENCOUNTER 2025-04-06 12:57 | Outpatient (CLI) | payer OTHER ==
[~2025-04-06] VITALS: Ht 165.1 cm; Wt 101.0 kg
[2025-04-06 13:00] VITALS: BP 141/88; O2SAT 99
[2025-04-06] MEDS: FERRIC CARBOXYMALTOSE 750 MG (VIAL MATE) IN 100ML NS IV ONE (13:17)
[2025-04-06 13:54] VITALS: BP 136/86; O2SAT 100
== END 2025-04-06 13:55 | disposition home or self-care (01) ==
LOC: M INFU 12:57
PROVIDERS: ATTEND Internal Medicine
DX: D50.9 Iron deficiency anemia, unspecified (principal); Z88.8 Allergy status to other drugs, medicaments and biological substances
CPT/HCPCS: 96365; J1439

== ENCOUNTER → 2025-06-02 | Outpatient (REF) | payer OTHER ==
[~2025-06-02] MED LIST changes: -ALBUTEROL SULFATE 2.5 MG/0.5 ML INH CONCENTRATE NEB SOLN INH PRN; -EPINEPHrine INJ 1 MG/ML 1ML AMP IM PRN; -diphenhydrAMINE 50 MG/ML VIAL IV PRN
== END ==
LOC: M LAB REF 12:01
PROVIDERS: ATTEND Physician Assistant
DX: J01.90 Acute sinusitis, unspecified (principal)